=== PATIENT | male | born 1965 | race African-American/Black ===

== ENCOUNTER 2019-01-09 08:00 | Emergency (ER) | payer SELFPAY ==
[~2019-01-09] VITALS: Ht 182.9 cm; Wt 77.1 kg
[2019-01-09] MEDS ORDERED: ASPIRIN CHEWABLE 81 MG TABLET. PO ONE (08:15)
[2019-01-09 08:16] LABS: BASO # 0.1 x10^3/uL (0.0-0.2); BASO % 1 % (0-3); EOS # 0.2 x10^3/uL (0.0-0.7); EOS % 4 % (0-3); HEMATOCRIT 40.6 % (39.0-53.0); HEMOGLOBIN 13.1 g/dL (13.0-17.5); LYMPH # 2.4 x10^3/uL (1.0-4.8); LYMPH % 40 % (24-48); MEAN CORPUSCULAR HEMOGLOBIN 29 pg (25-35); MEAN CORPUSCULAR HGB CONC 32 g/dL (31-37); MEAN CORPUSCULAR VOLUME 90 fL (79-100); MONO # 0.9 x10^3/uL (0.0-1.1); MONO % 15 % (0-9); NEUT # 2.4 x10^3uL (1.8-7.7); NEUT % 41 % (31-73); PLATELET COUNT 221 x10^3/uL (140-400); RED BLOOD COUNT 4.53 x10^6/uL (4.30-5.70); RED CELL DISTRIBUTION WIDTH 12.8 % (11.5-14.5); WHITE BLOOD COUNT 5.9 x10^3/uL (4.0-11.0)
[2019-01-09 08:29] LABS: CALCIUM 8.4 mg/dL (8.5-10.1); GFR 94.9; POTASSIUM 3.9 mmol/L (3.5-5.1)
[2019-01-09 08:35] LABS: ALBUMIN 3.5 g/dL (3.4-5.0); ALBUMIN/GLOBULIN RATIO 1.1 (1.0-1.7); TOTAL BILIRUBIN 0.5 mg/dL (0.2-1.0); TOTAL PROTEIN 6.7 g/dL (6.4-8.2)
[2019-01-09 08:50] LABS: PROTHROMBIN TIME PATIENT 13.3 SEC (11.7-14.0)
[2019-01-09 08:55] LABS: D-DIMER < 0.27 ug/mlFEU (0.00-0.50)
[2019-01-09 09:08] LABS: BARBITURATES NEG (NEG); BENZODIAZEPINES NEG (NEG); CANNABINOIDS POS (NEG); COCAINE NEG (NEG); METHADONE NEG (NEG); OPIATES NEG (NEG); PHENCYCLIDINE NEG (NEG)
[2019-01-09 09:16] LABS: AMPHETAMINE/METHAMPHETAMINE NEG (NEG)
--- NOTE | 2019-01-09 09:17 | RAD ---
Single view of the chest. 01/09/2019 8:50 AM Indication: CHEST PAIN Comparison: 2 views of the chest March 13, 2007 Findings: Stable calcified granuloma, left upper lung. No pneumothorax or pleural effusion is seen. No focal consolidative infiltrate is identified. Minimal interstitial coarsening is similar. Heart size is normal. Bony thorax is grossly intact. IMPRESSION: Stable radiographic appearance of the chest without evidence of acute cardiopulmonary process. Electronically signed by: Cayden Estrada MD (01/09/2019 9:14 AM) [facility]
[2019-01-09 10:30] VITALS: BP 118/82
--- NOTE | 2019-01-09 12:15 | EKG ---
[facility] [address] [place] [address] Test Date: 2019-01-09 Test Time: 08:06:22 Pat Name: YANIV JOSHUA Department: Room: Gender: M [employer]: : 1965 Requested By: CESAR REILLY Order Number: [id number] Reading MD: Janak Corey MD Measurements Intervals [place] Rate: 85 P: 76 OR: 160 QRS: 53 QRSD: 74 T: 59 QT: 352 QTc: 424 Interpretive Statements SINUS RHYTHM VENTRICULAR PREMATURE COMPLEX(ES) Electronically Signed On 01-10-2019 9:36:43 CDT by Janak Corey MD
--- NOTE | 2019-01-09 12:42 | PHYS DOC ---
Past Medical History Past Medical History: No Pertinent History, Other Additional Past Medical Histor: HX OF PCP USE Past Surgical History: No Surgical History Alcohol Use: None Drug Use: Phencyclidine Adult General Chief Complaint Chief Complaint: CHEST PAIN HPI HPI Patient is a 53 year old male who presents with chief complaint chest pain he describes as a "charley horse" he says that he feels the pain hits him 10 seconds at a time in other words it lasts 10 seconds at a time he's had it every day for 2 months it comes at random while he is at rest. He does 50 pushups a day or more and he never has any pain when he does that he tells me the pain is not exertional he feels the pain in his anterior thighs as well as his abdominal area in his arms as well as kind of like total body cramping when asked him in more detail. He is a smoker but he denies other medical history no history of hypertension no family history of coronary artery disease Review of Systems Review of Systems Constitutional: Denies fever or chills [] Eyes: Denies change in visual acuity, redness, or eye pain [] HENT: Denies nasal congestion or sore throat [] Respiratory: Denies cough or shortness of breath [] Cardiovascular: No additional information not addressed in HPI [] GI: Denies abdominal pain, nausea, vomiting, bloody stools or diarrhea [] : Denies dysuria or hematuria [] Musculoskeletal: Integument: Denies rash or skin lesions [] Neurologic: Denies headache, focal weakness or sensory changes [] Endocrine: Denies polyuria or polydipsia [] All other systems were reviewed and found to be within normal limits, except as documented in this note. Current Medications Current Medications Current Medications Medications (Trade) Dose Ordered Sig/[facility] Start Time Stop Time Status Last Admin Dose Admin Aspirin (Children'S Aspirin) 324 mg 1X ONCE 01/09/19 08:15 01/09/19 08:25 DC 01/09/19 08:39 324 MG Allergies Allergies Allergies Coded Allergies Type Severity Reaction Last Updated Verified No Known Drug Allergies 05/08/15 No Physical Exam Physical Exam Constitutional: Well developed, well nourished, appears younger than stated age very muscular, non-toxic appearance. [] HENT: Normocephalic, atraumatic, bilateral external ears normal, oropharynx moist, no oral exudates, nose normal. [] Eyes: PERRLA, EOMI, conjunctiva normal, no discharge. [] Neck: Normal range of motion, no tenderness, supple, no stridor. [] Cardiovascular:Heart rate regular rhythm, no murmur [] Lungs & Thorax: Bilateral breath sounds clear to auscultation [] Abdomen: Bowel sounds normal, soft, no tenderness, no masses, no pulsatile masses. [] Skin: Warm, dry, no erythema, no rash. [] Back: No tenderness, no CVA tenderness. [] Extremities: No tenderness, no cyanosis, no clubbing, ROM intact, no edema. [] Neurologic: Alert and oriented X 3, normal motor function, normal sensory function, no focal deficits noted. [] Psychologic: Affect normal, judgement normal, mood normal. [] Current Patient Data Vital Signs Vital Signs Date Time Temp Pulse Resp B/P (MAP) Pulse Ox O2 Delivery O2 Flow Rate FiO2 01/09/19 10:30 56 18 118/82 (94) 100 Room Air 01/09/19 08:00 97.9 97.9 Lab Values Laboratory Tests Test 01/09/19 08:09 01/09/19 08:45 01/09/19 10:00 White Blood Count 5.9 x10^3/uL (4.0-11.0) Red Blood Count 4.53 x10^6/uL (4.30-5.70) Hemoglobin 13.1 g/dL (13.0-17.5) Hematocrit 40.6 % (39.0-53.0) Mean Corpuscular Volume 90 fL (79-100) Mean Corpuscular Hemoglobin 29 pg (25-35) Mean Corpuscular Hemoglobin Concent 32 g/dL (31-37) Red Cell Distribution Width 12.8 % (11.5-14.5) Platelet Count 221 x10^3/uL (140-400) Neutrophils (%) (Auto) 41 % (31-73) Lymphocytes (%) (Auto) 40 % (24-48) Monocytes (%) (Auto) 15 % (0-9) H Eosinophils (%) (Auto) 4 % (0-3) H Basophils (%) (Auto) 1 % (0-3) Neutrophils # (Auto) 2.4 x10^3uL (1.8-7.7) Lymphocytes # (Auto) 2.4 x10^3/uL (1.0-4.8) Monocytes # (Auto) 0.9 x10^3/uL (0.0-1.1) Eosinophils # (Auto) 0.2 x10^3/uL (0.0-0.7) Basophils # (Auto) 0.1 x10^3/uL (0.0-0.2) Prothrombin Time 13.3 SEC (11.7-14.0) Prothrombin Time INR 1.0 (0.8-1.1) D-Dimer (Anabelle) < 0.27 ug/mlFEU Sodium Level 141 mmol/L (136-145) Potassium Level 3.9 mmol/L (3.5-5.1) Chloride Level 105 mmol/L (98-107) Carbon Dioxide Level 26 mmol/L (21-32) Anion Gap 10 (6-14) Blood Urea Nitrogen 8 mg/dL (8-26) Creatinine 1.0 mg/dL (0.7-1.3) Estimated GFR (Cockcroft-Gault) 94.9 BUN/Creatinine Ratio 8 (6-20) Glucose Level 93 mg/dL (70-99) Calcium Level 8.4 mg/dL (8.5-10.1) L Total Bilirubin 0.5 mg/dL (0.2-1.0) Aspartate Amino Transferase (AST) 22 U/L (15-37) Alanine Aminotransferase (ALT) 19 U/L (16-63) Alkaline Phosphatase 83 U/L (46-116) Troponin I Quantitative < 0.017 ng/mL (0.000-0.055) < 0.017 ng/mL (0.000-0.055) Total Protein 6.7 g/dL (6.4-8.2) Albumin 3.5 g/dL (3.4-5.0) Albumin/Globulin Ratio 1.1 (1.0-1.7) Urine Opiates Screen Neg (NEG) Urine Methadone Screen Neg (NEG) Urine Barbiturates Neg (NEG) Urine Phencyclidine Screen Neg (NEG) Urine Amphetamine/Methamphetamine Neg (NEG) Urine Benzodiazepines Screen Neg (NEG) Urine Cocaine Screen Neg (NEG) Urine Cannabinoids Screen Pos (NEG) Urine Ethyl Alcohol Neg (NEG) Laboratory Tests 01/09/19 08:09 Laboratory Tests 01/09/19 08:09 EKG EKG Normal sinus rhythm rate of [address] elevation or depression[] Radiology/Procedures Radiology/Procedures [] Impressions: IMPRESSION: Stable radiographic appearance of the chest without evidence of acute cardiopulmonary process. Electronically signed by: Alexx Starks MD (01/09/2019 9:14 AM) [facility] DICTATED and SIGNED BY: ALEXX STARKS MD DATE: 01/09/19913 Course & Med Decision Making Course & Med Decision Making Pertinent Labs and Imaging studies reviewed. (See chart for details) []53-year-old male presenting with some very atypical sounding 2 months worth of daily chest pain related sounds like muscle cramping in his chest as well as his legs and arms at times 2 troponins were negative EKG showed no signs of ischemia patient is asymptomatic while in the emergency room. We did a d-dimer that was negative I do not suspect a dissection. Heart score is h 0 e 0 a 1 r 1 t 0 = 2. I've given him the names of local primary care doctor's advised him to follow-up and I also advised him to stop smoking and I asked him to come back to the emergency room should he have chest pain lasting more than 1-2 minutes or any new or concerning symptoms Dragon Disclaimer Dragon Disclaimer This electronic medical record was generated, in whole or in part, using a voice recognition dictation system. Departure Departure Impression: Primary Impression: Chest pain Disposition: HOME, SELF-CARE Condition: STABLE Patient Instructions: Chest Pain (Nonspecific), [id number] Additional Instructions: your emergency room tests were negative. please see [facility] doctor and stop smoking. come back to er for recurrent pain lasting more than 1-2 minutes CESAR REILLY MD Jan 09, 2019 12:42
== END 2019-01-09 11:20 | disposition home or self-care (01) ==
LOC: ER 08:00
DX: R07.89 Other chest pain (principal); F17.200 Nicotine dependence, unspecified, uncomplicated
CPT/HCPCS: 36415; 71045; 80053; 80307; 84484; 85025; 85379; 85610; 93005; 99284-25